=== PATIENT | female | born 1955 | race Caucasian/White ===

== ENCOUNTER 2016-08-31 22:02 | Observation (INO) | payer OTHER ==
[~2016-08-31] VITALS: Ht 165.1 cm; Wt 62.7 kg
[2016-08-31] MEDS ORDERED: SODIUM CHLORIDE 0.9% 1000ML 1,000 ML IV ONE (22:15)
--- NOTE | 2016-08-31 22:43 | DIAGNOSTIC IMAGING REPORT ---
SINGLE VIEW CHEST CLINICAL HISTORY: Syncope. FINDINGS: An AP, portable, upright chest radiograph is obtained. No prior studies are available for comparison at the time of dictation. The examination is degraded by portable technique and patient rotation. The cardiomediastinal silhouette is unremarkable. The lungs and pleural spaces are clear. No pneumothorax is seen. The skeletal structures are osteopenic. The bony thorax is grossly intact. IMPRESSION: No active disease in the chest. Electronically signed by: Johnnie Crowder M.D. 08/31/2016 10:42 PM Dictated Date/Time: 08/31/2016 10:41 PM
[2016-08-31 22:44] LABS: BUN/CREATININE RATIO 20.1 (10-20); CALCIUM 9.6 mg/dl (8.5-10.1); CREATININE 1.3 mg/dl (0.60-1.20); POTASSIUM 2.8 mmol/L (3.5-5.1)
[2016-08-31] MEDS ORDERED: ASPI81TA28 PO (22:45)
[2016-08-31] MEDS ORDERED: ROSU5TAB PO (22:45)
[2016-08-31] MEDS ORDERED: LISI-787 PO (22:45)
[2016-08-31] MEDS ORDERED: METO25TA3 PO (22:45)
[2016-08-31 22:46] LABS: PROTHROMBIN TIME (PATIENT) 10.7 SECONDS (9.0-12.0)
[2016-08-31 22:49] LABS: HEMATOCRIT 39.5 % (37-47); MEAN CELL VOLUME 92.9 fL (80-100); MEAN CORPUSCULAR HEMOGLOBIN 32.9 pg (25-34); MEAN CORPUSCULAR HGB CONC 35.4 g/dl (32-36); MEAN PLATELET VOLUME 11.1 fL (7.4-10.4); PLATELET COUNT 225 K/uL (130-400); RED BLOOD COUNT 4.25 M/uL (4.2-5.4); WHITE BLOOD COUNT 11.05 K/uL (4.8-10.8)
[2016-08-31 22:53] LABS: ALB/GLOB RATIO 1.1 (0.9-2); CKMB/CK RATIO 1.7 (0-3.0); THYROID STIMULATING HORMONE 2.63 uIu/ml (0.300-4.500)
[2016-08-31] MEDS ORDERED: POTASSIUM CHLR 20 MEQ / WTR 20 MEQ in PREMIXED WATER 100 ML IV STA (22:56)
[2016-08-31 23:01] LABS: MANUAL MICROSCOPIC REQUIRED? YES; URINE APPEARANCE CLEAR (CLEAR); URINE BILIRUBIN NEG (NEG); URINE COLOR YELLOW; URINE NITRITE NEG (NEG); URINE PH 6.5 (4.5-7.5); UROBILINOGEN NEG (NEG)
[2016-08-31 23:04] LABS: REVIEW REQ? NO
[2016-08-31] MEDS ORDERED: POTASSIUM CHLORIDE 10 MEQ / 100ML WTR IV ONE (23:05)
[2016-08-31 23:13] LABS: URINE BACTERIA NEG (NEG); URINE RBC 0-4 /hpf (0-4)
[2016-08-31 23:14] LABS: ZZUR CULT IF INDIC CLEAN CATCH NO
--- NOTE | 2016-09-01 00:22 | History and Physical ---
History & Physical Date & Time of Service: Sep 01, 2016 at 00:22 Chief Complaint: Syncope Primary Care Physician: No Doctor, Assigned History of Present Illness Source: patient this is a 61 yo F with past medical hx of HTN , Hyperlipidemia lives in [place] , visiting [facility] , pt has her won house in [place] , was in Normal state of health Drove form [place] to [facility] on Friday -did not stop during the 3.[address] yesterday after dinner , pt felt dizzy ,lightheaded leading to syncope pt denies of any feeling of nausea, SOB ,chest heaviness or headache prior syncope no reports of seizure her ist recollection was in Ambulance as she woke up did not had any confusion or vision problem feels weak and drained out no prior hx of similar event no prior hx of CAD or MD or CVA pt mentions she had detail cardiac work up done last year does not recall stress test lab work -revealed PATRICK, Cr 1.3 ( unknown baseline ) pt mentions she was never told that she had any kidney disease Sintia K EKG RBBB with prolong Qtc > 500 no prior EKG to compare Social History Smoking Status: Former Smoker Allergies Coded Allergies: No Known Allergies (Unverified , 08/31/16) Home Medications Scheduled Aspirin (Aspirin Ec), 81 MG PO DAILY Lisinopril/Hctz (Zestoretic 20MG/12.5MG), 1 TAB PO DAILY Metoprolol Succinate (Toprol Xl), 1 TAB PO DAILY Rosuvastatin Calcium (Crestor), 1 TAB PO DAILY Review of Systems Constitutional: No chills, No fatigue, No fever, No problem reported, No sweats , No weakness, No weight loss Eyes: No diplopia, No discharge, No eye pain, No problem reported, No redness, No worsening of vision ENT: No dental problems, No hearing loss, No nasal symptoms, No problem reported, No sore throat, No tinnitus, No trouble swallowing, No unusual epistaxis Respiratory: No cough, No dyspnea at rest, No dyspnea on exertion, No hemoptysis, No problem reported, No shortness of breath, No sputum, No wheezing Cardiovascular: No PND, No chest pain, No claudication, No edema, No orthopnea , No palpitations, No problem reported Abdomen: No GI bleeding, No constipation, No diarrhea, No nausea, No pain, No problem reported, No vomiting Musculoskeletal: No calf pain, No joint pain, No muscle pain, No problem reported, No swelling Genitourinary - Female: No dysmenorrhea, No dysuria, No hematuria, No menorrhagia, No metrorrhagia, No , No problem reported, No rash, No urinary frequency, No urinary incontinence, No urinary retention, No urinary urgency, No vaginal bleeding, No vaginal discharge, No vaginal itching, No vulvodynia Neurologic: + problem reported (syncope ), + vertigo Physical Exam Vital Signs Date Time Temp Pulse Resp B/P Pulse Ox O2 Delivery O2 Flow Rate FiO2 08/31/16 23:56 36.7 84 18 124/70 98 Room Air 08/31/16 23:29 Room Air 08/31/16 22:55 84 08/31/16 22:50 79 123/65 78 123/71 08/31/16 22:23 36.7 90 18 151/82 96 Room Air General Appearance: no apparent distress Head: normocephalic, atraumatic Eyes: sclerae normal Neck: no carotid bruits, + adenopathy present Respiratory/Chest: chest non-tender, lungs clear, normal breath sounds, no respiratory distress Cardiovascular: no JVD Abdomen/GI: normal bowel sounds, non tender, soft Extremities/Musculoskelatal: no calf tenderness, normal capillary refill, no pedal edema, normal range of motion Neurologic/Psych: no motor/sensory deficits, alert, normal mood/affect, normal reflexes, oriented x 3 Skin: normal color, warm/dry, no rash Lymphatic: no adenopathy Diagnostics Laboratory Results Results Past 24 Hours Test 08/31/16 22:00 08/31/16 22:20 08/31/16 22:33 Range/Units White Blood Count 11.05 4.8-10.8 K/uL Red Blood Count 4.25 4.2-5.4 M/uL Hemoglobin 14.0 12.0-16.0 g/dL Hematocrit 39.5 37-47 % Mean Corpuscular Volume 92.9 80-100 fL Mean Corpuscular Hemoglobin 32.9 25-34 pg Mean Corpuscular Hemoglobin Concent 35.4 32-36 g/dl Platelet Count 225 130-400 K/uL Mean Platelet Volume 11.1 7.4-10.4 fL RDW Standard Deviation 41.6 36.4-46.3 fL RDW Coefficient of Variation 12.2 11.5-14.5 % Prothrombin Time 10.7 9.0-12.0 SECONDS Prothromb Time International Ratio 1.0 0.9-1.1 Activated Partial Thromboplast Time 25.0 21.0-31.0 SECONDS Partial Thromboplastin Ratio 1.0 Sodium Level 141 136-145 mmol/L Potassium Level 2.8 3.5-5.1 mmol/L Chloride Level 99 98-107 mmol/L Carbon Dioxide Level 26 21-32 mmol/L Anion Gap 16.0 3-11 mmol/L Blood Urea Nitrogen 26 7-18 mg/dl Creatinine 1.30 0.60-1.20 mg/dl Est Creatinine Clear Calc Drug Dose 40.9 ml/min Estimated GFR () 51.3 Estimated GFR (Non- 44.2 BUN/Creatinine Ratio 20.1 10-20 Random Glucose 107 70-99 mg/dl Calcium Level 9.6 8.5-10.1 mg/dl Total Bilirubin 0.4 0.2-1 mg/dl Aspartate Amino Transf (AST/SGOT) 88 15-37 U/L Alanine Aminotransferase (ALT/SGPT) 91 12-78 U/L Alkaline Phosphatase 123 45-117 U/L Total Creatine Kinase 105 26-192 U/L Creatine Kinase MB 1.8 0.5-3.6 ng/ml Creatine Kinase MB Ratio 1.7 0-3.0 Total Protein 7.9 6.4-8.2 gm/dl Albumin 4.1 3.4-5.0 gm/dl Globulin 3.8 2.5-4.0 gm/dl Albumin/Globulin Ratio 1.1 0.9-2 Thyroid Stimulating Hormone (TSH) 2.630 0.300-4.500 uIu/ml Chemistry Specimen Hemolysis Urine Color YELLOW Urine Appearance CLEAR CLEAR Urine pH 6.5 4.5-7.5 Urine Specific [place] 1.010 1.000-1.030 Urine Protein NEG NEG Urine Glucose (UA) NEG NEG Urine Ketones NEG NEG Urine Occult Blood 1+ NEG Urine Nitrite NEG NEG Urine Bilirubin NEG NEG Urine Urobilinogen NEG NEG Urine Leukocyte Esterase NEG NEG Urine RBC 0-4 0-4 /hpf Urine WBC 1-5 0-5 /hpf Urine Epithelial Cells >30 0-5 /lpf Urine Bacteria NEG NEG Bedside Troponin I 0.010 0-0.045 ng/ml CXR normal Impression Assessment and Plan SYNCOPE no sure of the etiology Vaso vagal ? rule out CVA vs arrhythmia monitor in Tele , D dimer negative ECHO , carotid Doppler ordered CT head w/out contrast for eval EKG shows RBBC with prolong Qtc repeat EKG in AM Cardiology eval requested HYPOKALEMIA due to Poor PO intake , dehydration no report of nausea /vomiting /diarrhea was on diuretics ordered for replacement in ED follow PRP EKG CHANGE WITH RBBB: no prior EKG to compare request records form PCP in [place] PATRICK : unknown baseline Cr IVF NSS+ 20 Kcl @ 100 ml /hr repeat PRP in AM hold diuretics avoid NSAID's /nephrotoxin ELEVATED TRANSAMINASE : Pt denies of any symptom repeat LFT in AM RUQ USG hold statin HX OF HYPERLIPIDEMIA : hold statin for elevated liver enzyme fasting lipid panel in AM FULL CODE DVT PROPHYLAXIS : low to moderate risk sub q heparin DISPOSITION : expected to return home when medically stable pt follows with Family physician in [place] Medical records requested form Dr Steffi Navarerte -pt's family Physician [facility] [address] [address] [phone] Level of Care Telemetry Resuscitation Status FULL RESUSCITATION VTE Prophylaxis VTE Risk Assessment Done? Y/N: Yes Risk Level: Low Given or contraindicated: Unfractionated heparin SQ
[2016-09-01] MEDS ORDERED: SODIUM CHLORIDE 0.9% 1000ML 1,000 ML IV SCH (00:25)
[2016-09-01] MEDS ORDERED: NITROGLYCERIN 0.4 MG SL PER TAB CHARGE SL PRN (00:30)
[2016-09-01] MEDS ORDERED: ONDANSETRON INJ 2 MG/ML 2 ML VIAL IV PRN (00:30)
[2016-09-01] MEDS ORDERED: ACETAMINOPHEN 325 MG TAB PO PRN (00:30)
[2016-09-01] MEDS ORDERED: ALUMINUM/MAGNESIUM/SIMETH (MAALOX MAX) 30 ML UDC PO PRN (00:30)
[2016-09-01] MEDS ORDERED: MAGNESIUM HYDROXIDE SUSP 30 ML UDC PO PRN (00:30)
[2016-09-01] MEDS ORDERED: POLYETHYLENE (MIRALAX) 17 GM PACK PO PRN (00:30)
[2016-09-01] MEDS ORDERED: IV FLUIDS COMPLETED PRN (00:30)
[2016-09-01] MEDS ORDERED: POTASSIUM CHLORIDE 10 MEQ TABCR PO STA (00:38)
[2016-09-01 00:39] LABS: COMPLETE YES; LARGE GRANULAR LYMPH ABSOLUTE 1.65 K/uL; LARGE GRANULAR LYMPHOCYTE % 14.9 %; LYMPH ABS # 3.19 K/uL (1.2-3.4); LYMPHOCYTE % 28.9 %; NEUTROPHILS % 50.1 %
[2016-09-01 00:49] LABS: MAGNESIUM 2.8 mg/dl (1.8-2.4)
[2016-09-01 02:25] VITALS: BP 133/82; PULSE 79; TEMP 36.6; O2SAT 97; Ht 165.1 cm; Wt 62.7 kg
[2016-09-01] MEDS ORDERED: NURSING VERBAL MED ORDER ONE (03:15)
[2016-09-01] MEDS ORDERED: ZOLPIDEM TARTRATE 5 MG TAB PO PRN (03:30)
[2016-09-01 04:00] VITALS: BP 106/54; PULSE 74; TEMP 36.7; O2SAT 93
--- NOTE | 2016-09-01 05:23 | EMERGENCY ROOM VISIT NOTE ---
History First contact with patient: 22:06 Chief Complaint: SYNCOPE Stated Complaint: SYNCOPE Nursing Triage Summary: patient brought in by ems patient reports not feeling good and stating "I think I am having a heart attack" patient reports her laying down and passing out for few minutes patient reports ETOH tonight History of Present Illness The patient is a 61 year old female who presents to the Emergency Room with complaints of syncopal episode that occurred within the past one hour. The patient is from the [place] area but has a second home in [place]. The patient was at dinner with her friends, when she began feeling ill. She reportedly "turned liz" according to her , and then suffered a syncopal episode. The patient was unresponsive for 3-4 minutes, and EMS was contacted. The patient is now responsive and states that she feels embarrassed for being here. She is not experiencing headache, neck pain, dizziness, chest pain, chest tightness, shortness of breath, numbness, or paresthesias. She does have a history of both hypertension and dyslipidemia. She does not have personal history of diabetes or cardiac disease. She has not had similar episodes like this in the past. She does not report recent illness. Review of Systems More than 10 systems were reviewed and otherwise negative with the exception of history of present illness. Past Medical/Surgical History Medical Problems: (1) Syncope Family History No pertinent family history Social History Smoking Status: Former Smoker Current/Historical Medications Scheduled Aspirin (Aspirin Ec), 81 MG PO DAILY Lisinopril/Hctz (Zestoretic 20MG/12.5MG), 1 TAB PO DAILY Metoprolol Succinate (Toprol Xl), 1 TAB PO DAILY Rosuvastatin Calcium (Crestor), 1 TAB PO DAILY Allergies Coded Allergies: No Known Allergies (Unverified , 08/31/16) Physical Exam Vital Signs Date Time Temp Pulse Resp B/P Pulse Ox O2 Delivery O2 Flow Rate FiO2 08/31/16 23:56 36.7 84 18 124/70 98 Room Air 08/31/16 23:29 Room Air 08/31/16 22:55 84 08/31/16 22:50 79 123/65 78 123/71 08/31/16 22:23 36.7 90 18 151/82 96 Room Air Pain Rating (0-10): 0 Physical Exam VITALS: Vitals are noted on the nurse's note and reviewed by myself. Vital signs stable. GENERAL: Well-developed, well-nourished, white female, who is in no acute distress and resting comfortably. Patient is cooperative with the examination. HEAD: Normocephalic atraumatic. NECK: Supple without nuchal rigidity. No lymphadenopathy. No thyromegaly. Cervical spine is nontender. HEART: Regular rate and rhythm without murmurs gallops or rubs. LUNGS: Clear to auscultation bilaterally without wheezes, rales or rhonchi. No retractions or accessory muscle use. ABDOMEN: Positive normal bowel sounds x 4. Soft, nontender, without masses or organomegaly. No guarding or rebound tenderness. MUSCULOSKELETAL: No muscle atrophy, erythema, or edema noted. Full range of motion without joint tenderness in all extremities. NEURO: Patient was alert and oriented to person place and time. CN II through XII grossly intact. No focal neurological deficits Medical Decision & Procedures ER Provider Diagnostic Interpretation: SINGLE VIEW CHEST CLINICAL HISTORY: Syncope. FINDINGS: An AP, portable, upright chest radiograph is obtained. No prior studies are available for comparison at the time of dictation. The examination is degraded by portable technique and patient rotation. The cardiomediastinal silhouette is unremarkable. The lungs and pleural spaces are clear. No pneumothorax is seen. The skeletal structures are osteopenic. The bony thorax is grossly intact. IMPRESSION: No active disease in the chest. Laboratory Results 08/31/16 22:00 Test 08/31/16 22:00 08/31/16 22:20 08/31/16 22:33 RDW Standard Deviation 41.6 fL (36.4-46.3) RDW Coefficient of Variation 12.2 % (11.5-14.5) White Blood Count 11.05 K/uL (4.8-10.8) Red Blood Count 4.25 M/uL (4.2-5.4) Hemoglobin 14.0 g/dL (12.0-16.0) Hematocrit 39.5 % (37-47) Mean Corpuscular Volume 92.9 fL (80-100) Mean Corpuscular Hemoglobin 32.9 pg (25-34) Mean Corpuscular Hemoglobin Concent 35.4 g/dl (32-36) Platelet Count 225 K/uL (130-400) Mean Platelet Volume 11.1 fL (7.4-10.4) Neutrophils % (Manual) 50.1 % Lymphocytes % (Manual) 28.9 % Monocytes % (Manual) 6.1 % Neutrophils # (Manual) 5.54 K/uL (1.4-6.5) Total Absolute Neutrophils 5.54 K/uL (1.4-6.5) Lymphocytes # (Manual) 3.19 K/uL (1.2-3.4) Total Absolute Lymphocytes 4.84 K/uL (1.2-3.4) Monocytes # (Manual) 0.67 K/uL (0.11-0.59) Percent Large Granular Lymphocytes 14.9 % Absolute Large Granular Lymphocytes 1.65 K/uL Prothrombin Time 10.7 SECONDS (9.0-12.0) Prothromb Time International Ratio 1.0 (0.9-1.1) Activated Partial Thromboplast Time 25.0 SECONDS (21.0-31.0) Partial Thromboplastin Ratio 1.0 D-Dimer < 190 ug/L FEU (0-500) Anion Gap 16.0 mmol/L (3-11) Est Creatinine Clear Calc Drug Dose 40.9 ml/min Estimated GFR () 51.3 Estimated GFR (Non- 44.2 BUN/Creatinine Ratio 20.1 (10-20) Calcium Level 9.6 mg/dl (8.5-10.1) Magnesium Level 2.8 mg/dl (1.8-2.4) Total Bilirubin 0.4 mg/dl (0.2-1) Aspartate Amino Transf (AST/SGOT) 88 U/L (15-37) Alanine Aminotransferase (ALT/SGPT) 91 U/L (12-78) Alkaline Phosphatase 123 U/L (45-117) Total Creatine Kinase 105 U/L (26-192) Creatine Kinase MB 1.8 ng/ml (0.5-3.6) Creatine Kinase MB Ratio 1.7 (0-3.0) Total Protein 7.9 gm/dl (6.4-8.2) Albumin 4.1 gm/dl (3.4-5.0) Globulin 3.8 gm/dl (2.5-4.0) Albumin/Globulin Ratio 1.1 (0.9-2) Thyroid Stimulating Hormone (TSH) 2.630 uIu/ml (0.300-4.500) Chemistry Specimen Hemolysis Urine Color YELLOW Urine Appearance CLEAR (CLEAR) Urine pH 6.5 (4.5-7.5) Urine Specific [place] 1.010 (1.000-1.030) Urine Protein NEG (NEG) Urine Glucose (UA) NEG (NEG) Urine Ketones NEG (NEG) Urine Occult Blood 1+ (NEG) Urine Nitrite NEG (NEG) Urine Bilirubin NEG (NEG) Urine Urobilinogen NEG (NEG) Urine Leukocyte Esterase NEG (NEG) Urine RBC 0-4 /hpf (0-4) Urine WBC 1-5 /hpf (0-5) Urine Epithelial Cells >30 /lpf (0-5) Urine Bacteria NEG (NEG) Bedside Troponin I 0.010 ng/ml (0-0.045) Medications Administered Medications (Trade) Dose Ordered Sig/[place] Route Start Time Stop Time Status Last Admin Dose Admin Sodium Chloride (Nss 1000ml) 1,000 ml @ 999 mls/hr Q1H1M ONCE IV 08/31/16 22:15 08/31/16 23:15 DC 08/31/16 22:15 999 MLS/HR Potassium Chloride (Kcl 10 Meq / Wtr) 20 meq STK-MED ONCE IV 08/31/16 23:05 08/31/16 23:06 DC 08/31/16 23:05 20 MEQ ED Course Physical exam and history were performed. Nursing notes and EMR were reviewed. Patient appears to have suffered a syncopal episode earlier this evening. EKG was performed and was normal sinus rhythm at 81 bpm with a right bundle branch block. No previous EKGs are available for comparison. IV access was established and labs were obtained. The patient was hydrated with normal saline. Chest x-ray was performed and the patient was placed on the patient monitor. She is not orthostatic. The patient's blood work is as above and was reviewed. She does not have a significantly elevated white blood cell count or gross anemia. She does have an elevated creatinine of 1.3, possibly from dehydration. Additionally she has elevated liver function tests. The patient troponin 1 is negative, and she did remain in normal sinus rhythm on the patient monitor. The patient was noted to have a potassium of 2.8, and this was repleted through her IV. Her urine is without evidence of infection. The patient and I had a lengthy discussion regarding her findings today. The patient appears to have had a true syncopal episode of several minutes unresponsiveness. She may be slightly dehydrated and does have some electrolyte imbalance. She is on a statin, and this could be contributing to her elevated LFTs. I do not feel that she is appropriate for discharge home at this time. I discussed the case with the [facility] hospitalist, who agreed to evaluate the patient here in the department. Please see the hospitalist dictation for further patient course, plan, and disposition. The chart was completed utilizing [employer] Speech Voice Recognition Software. Grammatical errors, random word insertions, pronoun errors, and incomplete sentences are an occasional consequence of this system due to software limitations, ambient noise, and hardware issues. Any formal questions or concerns about the content, text, or information contained within the body of this dictation should be directly addressed to the provider for clarification. . Medical Decision Differential diagnosis includes, but is not limited to: Myocardial infarction, dysrhythmia, pericarditis, pneumothorax, aortic aneurysm/dissection, DVT/PE, anxiety, GERD, PUD, electrolyte imbalance, thyroid disorder, pneumonia, bronchitis, pancreatitis, and others Impression Primary Impression: Syncope Departure Information Dispostion Still a Patient Condition FAIR Referrals No Doctor, Assigned (PCP) Forms HOME CARE DOCUMENTATION FORM, IMPORTANT VISIT INFORMATION Patient Instructions My [facility]
[2016-09-01 06:45] LABS: HEMATOCRIT 32.9 % (37-47); MEAN CELL VOLUME 90.9 fL (80-100); MEAN CORPUSCULAR HEMOGLOBIN 32.6 pg (25-34); MEAN CORPUSCULAR HGB CONC 35.9 g/dl (32-36); MEAN PLATELET VOLUME 10.2 fL (7.4-10.4); PLATELET COUNT 168 K/uL (130-400); RED BLOOD COUNT 3.62 M/uL (4.2-5.4); WHITE BLOOD COUNT 5.71 K/uL (4.8-10.8)
[2016-09-01 07:36] LABS: ALKALINE PHOSPHATASE 82 U/L (45-117); ALT/SGPT 68 U/L (12-78); AST/SGOT 58 U/L (15-37); BLOOD UREA NITROGEN 23 mg/dl (7-18); BUN/CREATININE RATIO 24.1 (10-20); CALCIUM 8.6 mg/dl (8.5-10.1); CARBON DIOXIDE 24 mmol/L (21-32); CHLORIDE 108 mmol/L (98-107); CHOLESTEROL 200 mg/dl (0-200); CHOLESTEROL/HDL RATIO 2.5; CKMB/CK RATIO 1.7 (0-3.0); CREATININE 0.95 mg/dl (0.60-1.20); GLUCOSE 83 mg/dl (70-99); HDL CHOLESTEROL 80 mg/dl; LDL CHOLESTEROL CALCULATED 68 mg/dl; MAGNESIUM 2.2 mg/dl (1.8-2.4); SODIUM 144 mmol/L (136-145); TRIGLYCERIDES 259 mg/dl (0-150); VERY LOW DENSITY LIPOPROT CALC 52 mg/dl
[2016-09-01] MEDS ORDERED: ASPIRIN 81 MG ECTAB PO SCH (09:00)
[2016-09-01] MEDS ORDERED: POTASSIUM CHLR 10 MEQ / WTR 10 MEQ in PREMIXED WATER 100 ML IV SCH (09:45)
--- NOTE | 2016-09-01 10:32 | DIAGNOSTIC IMAGING REPORT ---
CAROTID ARTERY ULTRASOUND CLINICAL HISTORY: Syncope. COMPARISON STUDY: None. TECHNIQUE: Real-time, grayscale, and color Doppler sonography of the carotid and vertebral arteries was performed. Images were viewed in the transverse and longitudinal planes. FINDINGS: There is minimal atherosclerotic plaque. Velocity measurements are listed below. COMMON CAROTID PEAK SYSTOLIC VELOCITY (CM/S): RIGHT 89 LEFT 82 ICA PEAK SYSTOLIC VELOCITY (CM/S): RIGHT 68 LEFT 82 Systolic ratios between the internal to common carotid arteries are normal. Antegrade flow is seen in the vertebral arteries. The external carotid arteries are patent. Blood pressure in the right arm measured 134/72. Blood pressure in the left arm measured 138/70. IMPRESSION: No evidence of a hemodynamically significant stenosis. Electronically signed by: Owen Escamilla M.D. 09/01/2016 10:31 AM Dictated Date/Time: 09/01/2016 10:25 AM
--- NOTE | 2016-09-01 10:33 | DIAGNOSTIC IMAGING REPORT ---
ABDOMINAL ULTRASOUND, RIGHT UPPER QUADRANT HISTORY: Elevated transaminase level. COMPARISON: None. FINDINGS: Hepatic echogenicity is increased. No hepatic lesions are identified. There is no biliary ductal dilatation. No gallstones are identified. The pancreatic body is normal. The head and tail are slightly obscured. There is no right hydronephrosis. Several echogenic structures within the right renal sinus likely reflect calculi. There is no right hydronephrosis. IMPRESSION: 1. No gallstones or biliary ductal dilatation. 2. Fatty liver. 3. Partially obscured pancreas. 4. Suspected right-sided nephrolithiasis. No right hydronephrosis. Electronically signed by: Owen Escamilla M.D. 09/01/2016 10:32 AM Dictated Date/Time: 09/01/2016 10:31 AM
[2016-09-01] MEDS ORDERED: POTASSIUM CHLORIDE 10 MEQ TABCR PO ONE (11:15)
[2016-09-01 11:35] VITALS: BP 153/81; PULSE 83; TEMP 36.4; O2SAT 96
--- NOTE | 2016-09-01 11:58 | Progress Note ---
Internal Med Progress Note Date of Service: Sep 01, 2016. Provider Documentation: SUBJECTIVE: Patient is doing well and denies any complaints. Patient was at her baseline till yesterday evening, when she had a syncopal episode lasting for few minutes, doesnt recall any preceding symptoms. No prior episodes of syncope. No chest pain, palpitations, nausea, vomiting, diarrhea, abdominal pain. OBJECTIVE: Vital Signs-as noted below Exam: General-AAOX3, no distress Neck-Supple, No JVD Lungs-AEBE, no wheezing, crackles Heart-S1, S2 normal, No murmurs Abdomen-Soft, non tender, non distended, BS present Extremities-No edema Neuro-AAOX3, no focal deficits Lab data as noted below. ASSESSMENT & PLAN: SYNCOPAL EPISODE : Patient was at her baseline till yesterday evening, when she had a syncopal episode lasting for few minutes, doesnt recall any preceding symptoms. No prior episodes of syncope. -Vaso vagal ? vs secondary to volume depletion (unclear etiology though) - creatinine up to 1.30, K 2.8. -IV fluids -Work up - Echo- pending, trop x 1 neg, Tele monitor- no arrhythmias, Orthostats - neg, US carotid- negative, CT head- pending, D dimer- negative HYPOKALEMIA K 2.8 on presentation. Has had issues with it in past -On HCTZ w hich will be discontinued as BP is borderline low -No acute etiology for hypokalemia noted -Monitor K, Mg PATRICK : Resolved unknown baseline Cr . Likely secondary to volume depletion IVF NSS+ 20 Kcl @ 100 ml /hr -Monitoir -avoid NSAID's /nephrotoxin EKG CHANGE WITH RBBB: no prior EKG to compare -EKG to be followed up -No cardiac symptoms -Echo to follow up ELEVATED TRANSAMINASE : Mild ALT 90s, ALP 123--> trending down. -On crestor, but not significant enough to hold it -US ordered- pending HX OF HYPERLIPIDEMIA : hold statin for elevated liver enzyme Lipid panel FULL CODE DVT PROPHYLAXIS : low to moderate risk sub q heparin DISPOSITION : expected to return home when medically stable pt follows with Family physician in [place] Medical records requested form Dr Steffi Navarrete -pt's family Physician [facility] [address] [address] [phone] Patient and eager to be discharged today Will follow up test results Vital Signs: Date Time Temp Pulse Resp B/P Pulse Ox O2 Delivery O2 Flow Rate FiO2 09/01/16 08:00 Room Air 09/01/16 04:00 36.7 74 16 106/54 93 Room Air 09/01/16 02:25 36.6 79 20 133/82 97 Room Air 08/31/16 23:56 36.7 84 18 124/70 98 Room Air 08/31/16 23:29 Room Air 08/31/16 22:55 84 08/31/16 22:50 79 123/65 78 123/71 08/31/16 22:23 36.7 90 18 151/82 96 Room Air Lab Results: Results Past 24 Hours Test 08/31/16 22:00 08/31/16 22:20 08/31/16 22:33 09/01/16 06:35 Range/Units White Blood Count 11.05 5.71 4.8-10.8 K/uL Red Blood Count 4.25 3.62 4.2-5.4 M/uL Hemoglobin 14.0 11.8 12.0-16.0 g/dL Hematocrit 39.5 32.9 37-47 % Mean Corpuscular Volume 92.9 90.9 80-100 fL Mean Corpuscular Hemoglobin 32.9 32.6 25-34 pg Mean Corpuscular Hemoglobin Concent 35.4 35.9 32-36 g/dl Platelet Count 225 168 130-400 K/uL Mean Platelet Volume 11.1 10.2 7.4-10.4 fL RDW Standard Deviation 41.6 40.1 36.4-46.3 fL RDW Coefficient of Variation 12.2 12.1 11.5-14.5 % Neutrophils % (Manual) 50.1 % Lymphocytes % (Manual) 28.9 % Monocytes % (Manual) 6.1 % Neutrophils # (Manual) 5.54 1.4-6.5 K/uL Total Absolute Neutrophils 5.54 1.4-6.5 K/uL Lymphocytes # (Manual) 3.19 1.2-3.4 K/uL Total Absolute Lymphocytes 4.84 1.2-3.4 K/uL Monocytes # (Manual) 0.67 0.11-0.59 K/uL Percent Large Granular Lymphocytes 14.9 % Absolute Large Granular Lymphocytes 1.65 K/uL Prothrombin Time 10.7 9.0-12.0 SECONDS Prothromb Time International Ratio 1.0 0.9-1.1 Activated Partial Thromboplast Time 25.0 21.0-31.0 SECONDS Partial Thromboplastin Ratio 1.0 D-Dimer < 190 0-500 ug/L FEU Sodium Level 141 144 136-145 mmol/L Potassium Level 2.8 3.0 3.5-5.1 mmol/L Chloride Level 99 108 98-107 mmol/L Carbon Dioxide Level 26 24 21-32 mmol/L Anion Gap 16.0 12.0 3-11 mmol/L Blood Urea Nitrogen 26 23 7-18 mg/dl Creatinine 1.30 0.95 0.60-1.20 mg/dl Est Creatinine Clear Calc Drug Dose 40.9 56.0 ml/min Estimated GFR () 51.3 74.9 Estimated GFR (Non- 44.2 64.6 BUN/Creatinine Ratio 20.1 24.1 10-20 Random Glucose 107 83 70-99 mg/dl Calcium Level 9.6 8.6 8.5-10.1 mg/dl Magnesium Level 2.8 2.2 1.8-2.4 mg/dl Total Bilirubin 0.4 0.4 0.2-1 mg/dl Aspartate Amino Transf (AST/SGOT) 88 58 15-37 U/L Alanine Aminotransferase (ALT/SGPT) 91 68 12-78 U/L Alkaline Phosphatase 123 82 45-117 U/L Total Creatine Kinase 105 83 26-192 U/L Creatine Kinase MB 1.8 1.4 0.5-3.6 ng/ml Creatine Kinase MB Ratio 1.7 1.7 0-3.0 Total Protein 7.9 6.2 6.4-8.2 gm/dl Albumin 4.1 3.2 3.4-5.0 gm/dl Globulin 3.8 2.5-4.0 gm/dl Albumin/Globulin Ratio 1.1 0.9-2 Thyroid Stimulating Hormone (TSH) 2.630 0.300-4.500 uIu/ml Chemistry Specimen Hemolysis Urine Color YELLOW Urine Appearance CLEAR CLEAR Urine pH 6.5 4.5-7.5 Urine Specific [place] 1.010 1.000-1.030 Urine Protein NEG NEG Urine Glucose (UA) NEG NEG Urine Ketones NEG NEG Urine Occult Blood 1+ NEG Urine Nitrite NEG NEG Urine Bilirubin NEG NEG Urine Urobilinogen NEG NEG Urine Leukocyte Esterase NEG NEG Urine RBC 0-4 0-4 /hpf Urine WBC 1-5 0-5 /hpf Urine Epithelial Cells >30 0-5 /lpf Urine Bacteria NEG NEG Bedside Troponin I 0.010 0-0.045 ng/ml Direct Bilirubin < 0.1 0-0.2 mg/dl Troponin I < 0.015 0-0.045 ng/ml Triglycerides Level 259 0-150 mg/dl Cholesterol Level 200 0-200 mg/dl HDL Cholesterol 80 mg/dl LDL Cholesterol, Calculated 68 mg/dl VLDL Cholesterol, Calculated 52 mg/dl Cholesterol/HDL Ratio 2.5
[2016-09-01] MEDS: NSS + 20MEQ KCL 1000ML 1,000 ML IV SCH ×2 (13:30→13:37)
--- NOTE | 2016-09-01 13:35 | ECHOCARDIOGRAM REPORT ---
*NOTICE TO RECEIVING [employer] This information is strictly Confidential and protected under [place] law. [place] law prohibits you from making any further disclosure of this information unless further disclosure is expressly permitted by the written consent of the person to whom it pertains or is authorized by law. A general authorization for the release of medical or other information is not sufficient for this purpose. Hospital accepts no responsibility if the information is made available to any other person, INCLUDING THE PATIENT. Interpretation Summary * Name: LEE ANN FINLEY Study Date: 09/01/2016 11:00 AM BP: 106/54 mmHg * Patient Location: C.2E\S\E204\S\1 HR: 86 * : 1955 (M/d/yyyy) Gender: Female Height: 65 in * Age: 61 yrs Ethnicity: CA Weight: 138 lb * Ordering Physician: Marily Aguilar * Referring Physician: Self, Referred * Performed By: Heriberto López RDCS * * Reason For Study: Syncope * BSA: 1.7 m2 * -- Conclusions -- * The left ventricle is normal in structure and function. * Ejection Fraction = 60-65%. * The left ventricular wall motion is normal. * The right ventricular systolic function is normal. * No significant vavular pathology Procedure Details * A complete two-dimensional transthoracic echocardiogram was performed (2D, M-mode, Doppler and color flow Doppler). * The study was technically adequate. Left Ventricle * The left ventricle is normal in size. * There is normal left ventricular wall thickness. * The left ventricle is normal in structure and function. * Ejection Fraction = 60-65%. * The left ventricular wall motion is normal. Right Ventricle * The right ventricle is normal size. * The right ventricular systolic function is normal. Atria * The left atrial size is normal. * Right atrial size is normal. * The interatrial septum is intact with no evidence for an atrial septal defect. Mitral Valve * The mitral valve anatomy is normal. * There is mild mitral regurgitation. Tricuspid Valve * The tricuspid valve anatomy is normal. * There is trace tricuspid regurgitation. Aortic Valve * The aortic valve is normal in structure and function. Great Vessels * The aortic root and proximal ascending aorta are normal sized. Pericardium/Pleural * There is no pericardial effusion. MMode 2D Measurements and Calculations IVSd 1.6 cm IVSs 2.3 cm LVIDd 3.1 cm LVIDs 1.7 cm LVPWd 1.7 cm LVPWs 2.1 cm IVS/LVPW 0.94 FS 44.4 % EDV(Teich) 39.3 ml ESV(Teich) 9.0 ml EF(Teich) 77.0 % EDV(cubed) 31.1 ml ESV(cubed) 5.3 ml EF(cubed) 82.8 % % IVS thick 39.1 % % LVPW thick 21.2 % LV mass(C)d 203.1 grams LV mass(C)dI 120.2 grams/m\S\2 LV mass(C)s 185.5 grams LV mass(C)sI 109.8 grams/m\S\2 SV(Teich) 30.3 ml SI(Teich) 17.9 ml/m\S\2 SV(cubed) 25.8 ml SI(cubed) 15.3 ml/m\S\2 Ao root diam 2.3 cm Ao root area 4.2 cm\S\2 ACS 1.3 cm LA dimension 3.4 cm asc Aorta Diam 2.9 cm LA/Ao 1.5 LVOT diam 1.9 cm LVOT area 2.7 cm\S\2 LVAd ap4 17.6 cm\S\2 LVLd ap4 6.4 cm EDV(MOD-sp4) 40.0 ml LVAs ap4 9.5 cm\S\2 LVLs ap4 5.7 cm ESV(MOD-sp4) 14.0 ml EF(MOD-sp4) 65.0 % LVAd ap2 14.9 cm\S\2 LVLd ap2 6.7 cm EDV(MOD-sp2) 28.0 ml LVAs ap2 8.5 cm\S\2 LVLs ap2 5.7 cm ESV(MOD-sp2) 11.0 ml EF(MOD-sp2) 60.7 % SV(MOD-sp4) 26.0 ml SI(MOD-sp4) 15.4 ml/m\S\2 SV(MOD-sp2) 17.0 ml SI(MOD-sp2) 10.1 ml/m\S\2 Doppler Measurements and Calculations MV E max hermilo 109.1 cm/sec MV A max hermilo 102.0 cm/sec MV E/A 1.1 MV dec time 0.17 sec Ao V2 max 158.1 cm/sec Ao max PG 10.0 mmHg Ao max PG (full) 2.4 mmHg MICHELLE(V,A) 2.4 cm\S\2 MICHELLE(V,D) 2.4 cm\S\2 LV V1 max PG 7.6 mmHg LV V1 max 138.1 cm/sec PA V2 max 101.8 cm/sec PA max PG 4.1 mmHg
--- NOTE | 2016-09-01 14:37 | DIAGNOSTIC IMAGING REPORT ---
CT OF THE HEAD WITHOUT CONTRAST CLINICAL HISTORY: Syncope. COMPARISON STUDY: No previous studies for comparison. CT DOSE: 537.48 mGy.cm TECHNIQUE: Helical axial images of the head were obtained without IV contrast. Automated exposure control was utilized for the study. FINDINGS: No acute intracranial hemorrhage, midline shift or mass effect is present. Ventricular system is normal. The basilar cisterns are patent. There are no extra-axial collections. Logan-white differentiation is maintained. There are no findings to suggest acute dural sinus thrombosis or acute territorial infarct. There is no calvarial fracture. Visualized portions of the sinuses and mastoid air cells are clear. IMPRESSION: No acute intracranial findings. Electronically signed by: Owen Escamilla M.D. 09/01/2016 2:35 PM Dictated Date/Time: 09/01/2016 2:30 PM
[2016-09-01 15:00] VITALS: BP 125/81; PULSE 71; TEMP 37; O2SAT 97
[2016-09-01 15:15] LABS: CKMB/CK RATIO 1.8 (0-3.0)
[2016-09-01 15:20] LABS: CALCIUM 8.6 mg/dl (8.5-10.1); CREATININE 1.2 mg/dl (0.60-1.20)
[2016-09-01 15:21] LABS: POTASSIUM 3.5 mmol/L (3.5-5.1)
--- NOTE | 2016-09-01 15:37 | Discharge Instructions ---
Discharge Instructions Admission Reason for Admission: Syncope Discharge Discharge Diagnosis / Problem: 1. Syncope, possible vasovagal versus volume depletion Discharge Goals Goal(s): Diagnostic testing, Therapeutic intervention Activity Recommendations Activity Limitations: resume your previous activity . Instructions / Follow-Up Instructions / Follow-Up MEDICATION CHANGES : 1. Discontinued Lisinopril/HCTZ due to low BP/Volume depletion/Acute kidney injury. If BP goes > 150, okay to restart Lisinopril 20 mg daily, avoid HCTZ due to low potassium MONITOR BMP to be done to check Creatinine/K during next office visit BP to be monitored due to discontinuation of above medication FOLLOW UP With PCP in 1 week. Call for appt date/time Current Hospital Diet Patient's current hospital diet: AHA Diet (Heart Healthy) Discharge Diet Recommended Diet: Regular Diet, AHA Diet (Heart Healthy) Pending Studies Studies pending at discharge: no Laboratory Results Lipid Panel Test 09/01/16 06:35 Range/Units Triglycerides Level 259 H 0-150 mg/dl Cholesterol Level 200 0-200 mg/dl HDL Cholesterol 80 mg/dl Cholesterol/HDL Ratio 2.5 LDL Cholesterol, Calculated 68 mg/dl Medical Emergencies . Who to Call and When: Medical Emergencies: If at any time you feel your situation is an emergency, please call 911 immediately. . Non-Emergent Contact Non-Emergency issues call your: Primary Care Provider . . "Provider Documentation" section prepared by Aga Martinez. VTE Core Measure Inpt VTE Proph given/why not?: Unfractionated heparin SQ
--- NOTE | 2016-09-01 15:43 | Discharge Summary ---
Discharge Summary Admission Date: Sep 01, 2016 at 00:07 Discharge Date: Sep 01, 2016 Discharge Disposition: Home Principal Diagnosis: 1. Syncope likely vasovagal vs volume depletion 2. PATRICK, mild 3. Hypokalemia Secondary Diagnoses/Problems: 1. Hypertension 2. Hyperlipidemia Procedures: Tele monitoring EKG serial Serial Troponin Echocardiogram CT head US carotid CXR US liver IV fluids Consultations: None Pending Studies/Follow-Up: Instructions / Follow-Up MEDICATION CHANGES : 1. Discontinued Lisinopril/HCTZ due to low BP/Volume depletion/Acute kidney injury. If BP goes > 150, okay to restart Lisinopril 20 mg daily, avoid HCTZ due to low potassium MONITOR BMP to be done to check Creatinine/K during next office visit BP to be monitored due to discontinuation of above medication FOLLOW UP With PCP in 1 week. Call for appt date/time Medication Reconciliation Continued Medications: Aspirin (Aspirin Ec) 81 Mg Tab 81 MG PO DAILY Metoprolol Succinate (Toprol Xl) Unknown Strength Tabcr 1 TAB PO DAILY Rosuvastatin Calcium (Crestor) Unknown Strength Tab 1 TAB PO DAILY Discontinued Medications: Lisinopril/Hctz (Zestoretic 20MG/12.5MG) Unknown Strength Tab 1 TAB PO DAILY Admission Information HPI (per Admitting provider): this is a 61 yo F with past medical hx of HTN , Hyperlipidemia lives in [place] , visiting [facility] [place] , pt has her won house in [place] , was in Normal state of health Drove form [facility] to [place] on Friday -did not stop during the 3.[address] yesterday after dinner , pt felt dizzy ,lightheaded leading to syncope pt denies of any feeling of nausea, SOB ,chest heaviness or headache prior syncope no reports of seizure her ist recollection was in Ambulance as she woke up did not had any confusion or vision problem feels weak and drained out no prior hx of similar event no prior hx of CAD or KS or CVA pt mentions she had detail cardiac work up done last year does not recall stress test lab work -revealed PATRICK, Cr 1.3 ( unknown baseline ) pt mentions she was never told that she had any kidney disease Sintia K EKG RBBB with prolong Qtc > 500 no prior EKG to compare Physical Exam (per Admitting): General Appearance: no apparent distress Head: normocephalic, atraumatic Eyes: sclerae normal Neck: no carotid bruits, + adenopathy present Respiratory/Chest: chest non-tender, lungs clear, normal breath sounds, no respiratory distress Cardiovascular: no JVD Abdomen/GI: normal bowel sounds, non tender, soft Extremities/Musculoskelatal: no calf tenderness, normal capillary refill, no pedal edema, normal range of motion Neurologic/Psych: no motor/sensory deficits, alert, normal mood/affect, normal reflexes, oriented x 3 Skin: normal color, warm/dry, no rash Lymphatic: no adenopathy Hospital Course SYNCOPAL EPISODE : Patient was at her baseline till yesterday evening, when she had a syncopal episode lasting for few minutes, doesnt recall any preceding symptoms. No prior episodes of syncope. -Vaso vagal ? vs secondary to volume depletion (unclear etiology though) - creatinine up to 1.30, K 2.8. -IV fluids improved BP -Work up - Echo- EF 60-65%, No wall motion abnormalities, trop x 2 neg, Tele monitor- no arrhythmias, Orthostats- neg, US carotid- negative, CT head- negative, D dimer- negative HYPOKALEMIA K 2.8 on presentation. Has had issues with it in past -On HCTZ which will be discontinued as BP is borderline low -No acute etiology for hypokalemia noted -Monitor K, Mg outpatient. If persists, need to look into the etiology -BMP to be done next office visit PATRICK : Resolved unknown baseline Cr . Likely secondary to volume depletion S/P IVF -Monitoir -avoid NSAID's /nephrotoxin EKG CHANGE WITH RBBB: No prior EKG to compare -Echo- EF 60-65%, Normal LV, RV -No cardiac symptoms ELEVATED TRANSAMINASE : Mild ALT 90s, ALP 123--> trending down. -On crestor, but not significant enough to discontinue it -US ordered-No acute abnormalities noted -Monitor outpatient HX OF HYPERLIPIDEMIA : hold statin for elevated liver enzyme Lipid panel-259 cholesterol, LDL < 70 FULL CODE DVT PROPHYLAXIS : low to moderate risk sub q heparin DISPOSITION : Eager to be discharged. Negative work up, asymptomatic - okay to discharge home today Follow up with Dr Steffi Navarrete -pt's family Physician in 1 week. Emphasized importance of doing so in 7 days Total time spent on discharge = 28 MINUTES This includes examination of the patient, discharge planning, medication reconciliation, and communication with other providers. Discharge Instructions Discharge Goals Goal(s): Diagnostic testing, Therapeutic intervention Activity Recommendations Activity Limitations: resume your previous activity . Instructions / Follow-Up Instructions / Follow-Up MEDICATION CHANGES : 1. Discontinued Lisinopril/HCTZ due to low BP/Volume depletion/Acute kidney injury. If BP goes > 150, okay to restart Lisinopril 20 mg daily, avoid HCTZ due to low potassium MONITOR BMP to be done to check Creatinine/K during next office visit BP to be monitored due to discontinuation of above medication FOLLOW UP With PCP in 1 week. Call for appt date/time Current Hospital Diet Patient's current hospital diet: AHA Diet (Heart Healthy) Discharge Diet Recommended Diet: Regular Diet, AHA Diet (Heart Healthy) Pending Studies Studies pending at discharge: no Laboratory Results Lipid Panel Test 09/01/16 06:35 Range/Units Triglycerides Level 259 H 0-150 mg/dl Cholesterol Level 200 0-200 mg/dl HDL Cholesterol 80 mg/dl Cholesterol/HDL Ratio 2.5 LDL Cholesterol, Calculated 68 mg/dl Medical Emergencies . Who to Call and When: Medical Emergencies: If at any time you feel your situation is an emergency, please call 911 immediately. . Non-Emergent Contact Non-Emergency issues call your: Primary Care Provider . . "Provider Documentation" section prepared by Aga Martinez. VTE Core Measure Inpt VTE Proph given/why not?: Unfractionated heparin SQ
[2016-09-01] MEDS ORDERED: LSN20 PO (15:50)
[2016-09-01 16:12] VITALS: BP 125/81; PULSE 71; TEMP 37; O2SAT 97
== END 2016-09-01 17:00 | disposition home or self-care (01) ==
LOC: ENRESERVDT → ENRESERVTM → C.EDB 22:04 → C.2E 09-01 00:07
PROVIDERS: ADMIT Hospitalist; ATTEND Internal Medicine
DX: R55 Syncope and collapse (principal); E87.6 Hypokalemia; N17.9 Acute kidney failure, unspecified; I45.10 Unspecified right bundle-branch block; I10 Essential (primary) hypertension; E78.5 Hyperlipidemia, unspecified; Z87.891 Personal history of nicotine dependence; Z79.82 Long term (current) use of aspirin; Z79.899 Other long term (current) drug therapy